=== PATIENT | female | born 1975 | race Caucasian/White ===

== ENCOUNTER 2018-09-15 12:36 | Inpatient (IN) | payer OTHER ==
[~2018-09-15] VITALS: Ht 157.5 cm; Wt 74.8 kg
[2018-09-15 12:50] VITALS: BP_SYST 148
--- NOTE | 2018-09-15 13:05 | NUR ---
Patient to ER bed 02 to gown for evaluation. Side rails up.
--- NOTE | 2018-09-15 13:05 | NUR ---
Pt AAOx4 ambulated into ED c/o LLQ pain and accompanying vomiting x 2 days. Pt took laxative yesterday with no relief. Skin pink dry and warm, breathing even and unlabored. No other injuries/complaints per pt/noted. Will continue to monitor.
--- NOTE | 2018-09-15 13:44 | NUR ---
ER Dr. Kebede at bedside examining patient.
[2018-09-15] MEDS ORDERED: NACL 0.9% 1,000 ML IV ONE (13:45)
[2018-09-15 13:54] LABS: BASOPHILS % (AUTO) 0.2 % (0.0-2.0); EOSINOPHILS % (AUTO) 0.2 % (0.0-4.0); HEMATOCRIT 36.3 % (36-48); HEMOGLOBIN 11.6 g/dL (12.0-16.0); LYMPHOCYTES # (AUTO) 1.1 K/uL (1.0-5.5); LYMPHOCYTES % (AUTO) 7.3 % (20.5-51.5); MEAN CORPUSCULAR HEMOGLOBIN 24 pg (27-31); MEAN CORPUSCULAR HGB CONC 32 % (32-36); MEAN CORPUSCULAR VOLUME 76 fL (79.0-98.0); MONOCYTES # (AUTO) 1.2 K/uL (0.0-1.0); MONOCYTES % (AUTO) 8.4 % (1.7-9.3); NEUTROPHILS # (AUTO) 12.2 K/uL (1.8-7.7); PLATELET COUNT (AUTO) 318 K/uL (130-430); RED CELL DISTRIBUTION WIDTH 22.3 % (9.0-15.0); WHITE BLOOD COUNT (AUTO) 14.5 K/uL (4.8-10.8)
--- NOTE | 2018-09-15 13:54 | NUR ---
Pt reports 10/[address] Kebede notified. ORders to be received.
[2018-09-15] MEDS ORDERED: fentaNYL CITRATE/PF 100 MCG/2 ML AMP IVP ONE (14:00)
[2018-09-15] MEDS ORDERED: ONDANSETRON HCL 4 MG/2 ML VIAL IVP ONE (14:00)
[2018-09-15] MEDS ORDERED: KETOROLAC TROMETHAMINE 30 MG VIAL IVP ONE (14:00)
[2018-09-15 14:04] LABS: CALCIUM 8.9 mg/dL (8.4-11.0); CREATININE 0.8 mg/dL (0.55-1.30); POTASSIUM 3.9 mmol/L (3.5-5.1)
[2018-09-15 14:10] LABS: NEUTROPHILS % (AUTO) 83.9 % (40.0-70.0)
[2018-09-15 14:17] LABS: ALBUMIN 3.5 g/dL (3.4-4.8); TOTAL BILIRUBIN 0.6 mg/dL (0.0-1.0)
--- NOTE | 2018-09-15 14:25 | NUR ---
Patient reports that she takes no medications at home.
--- NOTE | 2018-09-15 14:37 | NUR ---
Pt reports she is full code
[2018-09-15 15:37] LABS: BILIRUBIN,URINE NEGATIVE (NEGATIVE); BLOOD, URINE NEGATIVE (NEGATIVE); CLARITY/URINE HAZY (CLEAR); COLOR,URINE YELLOW (YELLOW); GLUCOSE,URINE NEGATIVE (NEGATIVE); KETONES,URINE NEGATIVE (NEGATIVE); LEUKOCYTE ESTERASE ,URINE 2+ (NEGATIVE); NITRITE, URINE NEGATIVE (NEGATIVE); PH,URINE 6.5 (5.0-8.0); PROTEIN URINE NEGATIVE (NEGATIVE); UROBILINOGEN,URINE 0.2 (0.2-1.0)
[2018-09-15] MEDS ORDERED: metroNIDAZOLE 500 mg/NS 100 ML IV ONE ×2 (16:15→18:45)
[2018-09-15] MEDS ORDERED: cefTRIAXone 1 GM in D5W 50 ML IV ONE (16:15)
--- NOTE | 2018-09-15 16:17 | NUR ---
Lab at bedside for blood draw
[2018-09-15 16:18] LABS: BACTERIA,URINE FEW /HPF (None Seen); RBC,URINE 0-3 /HPF (0-3); WBC,URINE 20-50 /HPF (0-3)
[2018-09-15] MEDS ORDERED: cefTRIAXone 1 GM VIAL ONE (16:18)
[2018-09-15 16:19] LABS: MUCUS,URINE 1+ /LPF (None Seen)
--- NOTE | 2018-09-15 16:26 | NUR ---
Rocephin administered. Pt tolerated well. No adverse reactions noted.
--- NOTE | 2018-09-15 16:32 | NUR ---
ADMISSION NOTE Received patient from ER via gurney. Patient admitted with diagnosis of . Patient is awake, alert, oriented X 4. Patient oriented to hospital room, call light, toileting, pain management and safety-teach back done. Patient informed that Justina will be her nurse and that their room number is 134B. Personal belongings checked and Belongings List documented. Call light within reach.
--- NOTE | 2018-09-15 16:44 | NUR ---
Patient will be admitted to care of [facility]. Admitted to Medsurg unit. Will go to room 134B. Belongings list completed. Summary report printed. Report will be given at bedside.
--- NOTE | 2018-09-15 16:44 | NUR ---
CONSULTATION CALLED REASON FOR CONSULTATION:DIVERTICULITIS WAS CONSULT CALLED?Y PERSON WHO WAS NOTIFIED:JESSE CONSULTING PHYSICIAN:RIGOBERTO FLORES STRIPER SPECIALTY:SURGEON STRIPER PHONE NUMBER:[phone] ORDERING PHYSICIAN:YOSEPH QUISPE
[2018-09-15 16:49] VITALS: BP_SYST 143
--- NOTE | 2018-09-15 17:30 | NUR ---
Patient Ambulated to Restroom with steady gait, family at bedside, will continue to monitor
--- NOTE | 2018-09-15 18:15 | NUR ---
Second Lactic Acid Draw at this time, patient resting in bed, family at bedside, denies pain at this time, IV site remains patent, will continue to monitor
[2018-09-15] MEDS: cefTRIAXone 1 GM IVPB PREMIX 50 ML IV SCH (18:45)
[2018-09-15] MEDS ORDERED: METOCLOPRAMIDE HCL 10 MG/2 ML VIAL IVP PRN (18:45)
[2018-09-15] MEDS ORDERED: MORPHINE 4 MG/ML INJ. SYRINGE IVP PRN (18:45)
[2018-09-15] MEDS ORDERED: MORPHINE 2 MG/ML INJ. SYRINGE IVP PRN (18:45)
[2018-09-15] MEDS: D5NS 1,000 ML IV SCH (18:56)
--- NOTE | 2018-09-15 19:08 | NUR ---
OPENING NOTES Bedside report received from dayshift nurse. Patient received AOx4, lying in bed, HOB raised, complaining of 6/10 abdominal pain. Patient informed that Morphine will be administered per PRN orders. Breathing is even and unlabored. IVF infusing well, IV site shows no signs of infiltration or infection. Call light with patient, instructed to call for any assistance, patient verbalized understanding. Patient refused bed alarm to be turned on despite being educated on its purpose or benefits, will continue to encourage throughout shift. Patient educated on assessing for orthostatic hypotension upon getting up, to sit up at edge of bed and assess for dizziness or weakness, if so call using call light for assistance, patient verbalized understanding. Bed is locked and at lowest position. Will continue to monitor and reassess.
[2018-09-15] MEDS: ONDANSETRON HCL 4 MG/2 ML VIAL IVP PRN (19:22)
--- NOTE | 2018-09-15 19:32 | NUR ---
Closing Note patient resting in bed, family at bedside, pain and nausea medication administered, IV site remains patent, IV fluids infusing at this time, no other needs at this time, report was given to Jacoby MICHELE, safety precautions remain in place, bedside table and call light left within reach, endorsed to shift engineer nurse
[2018-09-15 20:00] VITALS: BP_SYST 131
[2018-09-15] MEDS: metroNIDAZOLE 500 mg/NS 100 ML IV SCH (21:12)
--- NOTE | 2018-09-15 21:12 | NUR ---
IV ANTIBIOTIC HUNG Patient in bed, watching TV, no signs of discomfort noted, denies pain at this time. IV antibiotic hung at this time. IVF infusing well, IV site is patent, no signs of infiltration or infection noted. Call light with patient. Will continue to monitor.
[2018-09-15 23:14] VITALS: BP_SYST 103
--- NOTE | 2018-09-15 23:36 | NUR ---
TRANSFER OF CARE Bedside report given to RNShaye. Patient in bed sleeping, no signs of discomfort noted. Breathing even and unlabored. IVF infusing well. HOB raised. All needs met. Fall and safety precautions maintained throughout.
--- NOTE | 2018-09-15 23:37 | NUR ---
ASSUMPTION OF CARE BEDSIDE REPORT GIVEN BY LENY TURCIOS. PATIENT IS SLEEPING, STABLE, NO SIGNS OF RESPIRATORY DISTRESS. CALL LIGHT IS WITHIN REACH. BED IS LOCKED, ALARMED, AND AT THE LOWEST LEVEL. FALL AND SAFETY PRECAUTIONS WILL BE IN PLACE THROUGHOUT THE SHIFT.
--- NOTE | 2018-09-16 01:35 | NUR ---
NOTE PATIENT IS SLEEPING, STABLE, NO SIGNS OF RESPIRATORY DISTRESS. CALL LIGHT IS WITHIN REACH. BED IS LOCKED, ALARMED, AND AT THE LOWEST LEVEL.
[2018-09-16] MEDS: D5NS 1,000 ML IV SCH ×3 (02:32→14:04)
--- NOTE | 2018-09-16 03:31 | NUR ---
NOTE PATIENT IS SLEEPING, STABLE, NO SIGNS OF RESPIRATORY DISTRESS. CALL LIGHT IS WITHIN REACH. BED IS LOCKED, ALARMED, AND AT THE LOWEST LEVEL.
[2018-09-16] MEDS: metroNIDAZOLE 500 mg/NS 100 ML IV SCH ×3 (05:00→21:05)
--- NOTE | 2018-09-16 05:24 | NUR ---
NOTE PATIENT IS RESTING IN BED, STABLE, NO SIGNS OF RESPIRATORY DISTRESS. PATIENT DENIES ANY PAIN OR NAUSEA. CALL LIGHT IS WITHIN REACH. BED IS LOCKED, ALARMED, AND AT THE LOWEST LEVEL.
--- NOTE | 2018-09-16 06:38 | NUR ---
CLOSING NOTE PATIENT IS RESTING IN BED, STABLE, NO SIGNS OF RESPIRATORY DISTRESS. PATIENT DENIED ANY PAIN OR NAUSEA THROUGHOUT THE SHIFT. CALL LIGHT IS WITHIN REACH. BED IS LOCKED, ALARMED, AND AT THE LOWEST LEVEL. ALL NEEDS MET. PATIENT HAS BEEN KEPT NPO THROUGHOUT THE SHIFT. WILL CONTINUE TO MONITOR UNTIL SHIFT REPORT IS GIVEN AT BEDSIDE TO AM NURSE.
--- NOTE | 2018-09-16 07:30 | NUR ---
Opening Note patient resting in bed, awake and alert, no complaints of pain at this time, breathing unlabored on room air, IV fluids infusing at this time, site patent, educated her on use of call light for assistance, verbalized understanding, safety precautions in place, bedside table and call light left within reach, will continue to monitor
[2018-09-16 07:51] VITALS: BP_SYST 102
[2018-09-16 08:18] VITALS: BP_SYST 102
--- NOTE | 2018-09-16 08:25 | NUR ---
ASSUMPTION OF CARE BEDSIDE REPORT GIVEN BY LENY TURCIOS. PATIENT IS SLEEPING, STABLE, NO SIGNS OF RESPIRATORY DISTRESS. CALL LIGHT IS WITHIN REACH. BED IS LOCKED, ALARMED, AND AT THE LOWEST LEVEL. FALL AND SAFETY PRECAUTIONS WILL BE IN PLACE THROUGHOUT THE SHIFT. Addendum: 09/16/18 at 0861 by Shaye Nolasco RN NOTE INTENDED FOR DIFFERENT TIME
--- NOTE | 2018-09-16 08:30 | NUR ---
Dr. Simon Rounds on patient, awaiting Dr. Driver's surgical consult
--- NOTE | 2018-09-16 08:45 | NUR ---
Patient Resting in Bed at this time, no complaints of pain except when pressure on left lower quadrant, educated her regarding pain management and plan of care, verbalized understanding, no other needs at this time, safety precautions in place, bedside table and call light left within reach, will continue to monitor
[2018-09-16] MEDS: FAMOTIDINE 20 MG TABLET PO SCH ×2 (09:20→20:16)
--- NOTE | 2018-09-16 10:18 | NUR ---
Nutrition Update Gaurav Scale 18 noted. Pt admitted for diverticulitis. Diet: NPO BMI: 30.2 kg/m2 RD to follow per nutrition care standards.
--- NOTE | 2018-09-16 10:40 | NUR ---
Patient in Bed at this time, no complaints of pain, family at bedside, IV fluids infusing at this time, no complaints of chills, educated patient on use of call light for assistance, verbalized understanding, safety precautions in place, bedside table and call light left within reach, will continue to monitor
[2018-09-16 11:06] VITALS: BP_SYST 106
--- NOTE | 2018-09-16 12:50 | NUR ---
Patient Resting at this time, eyes closed, breathing unlabored on room air, IV fluids still infusing, safety precautions in place, bedside table and call light left within reach, will continue to monitor
--- NOTE | 2018-09-16 14:07 | NUR ---
Antibiotics hung at this time, site remains patent, no complaints of pain or nausea at this time, breathing remains unlabored on room air, educated patient on use of call light for assistance, verbalized understanding, safety precautions in place, bedside table and call light left within reach, will continue to monitor
--- NOTE | 2018-09-16 16:03 | NUR ---
Patient Taking Shower at this time, ambulated with steady gait, no complaints of pain at this time, breathing remains unlabored on room air, safety precautions in place, will continue to monitor
--- NOTE | 2018-09-16 16:24 | NUR ---
Dr. Driver Rounded at this time, stated to keep patient NPO, no plans for surgery at this time, will check MD orders
[2018-09-16 16:57] VITALS: BP_SYST 106
[2018-09-16 17:10] VITALS: BP_SYST 105
[2018-09-16] MEDS: cefTRIAXone 1 GM IVPB PREMIX 50 ML IV SCH (17:47)
--- NOTE | 2018-09-16 17:52 | NUR ---
Antibiotics Hung at this time, educated patient regarding med, verbalized understanding, IV site remains patent, family at bedside, educated patient on use of call light for assistance, verbalized understanding, safety precautions in place, bedside table and call light left within reach, will continue to monitor
--- NOTE | 2018-09-16 18:53 | NUR ---
Closing Note patient resting in bed, eyes closed, breathing unlabored on room air, HOB elevated, IV fluids infusing, site remains patent, safety precautions in place, bedside table and call light left within reach, will endorse to production planner scheduler nurse
--- NOTE | 2018-09-16 19:00 | NUR ---
OPENING NOTES Bedside report received from day shift nurse. Patient received AOx4, lying in bed, watching TV. Patient denies any pain. No s/s of acute distress. Breathing is even and unlabored. IVF infusing well. IV site shows no signs of infection or infiltration. Call light with patient. Bed alarm is off per patient's request, will continue to encourage throughout shift. Bed is locked and at lowest position. Will continue to monitor.
[2018-09-16 20:00] VITALS: BP_SYST 111
--- NOTE | 2018-09-16 21:00 | NUR ---
ROUNDS Patient in bed resting at this time. NO signs of discomfort noted. Patient denies any pain or discomfort. Chest rise and fall even bilaterally. Call light with patient. IVF infusing well. Will continue to monitor.
--- NOTE | 2018-09-16 23:00 | NUR ---
ROUNDS Patient in bed sleeping at this time. No signs of discomfort noted. Chest rise and fall even bilaterally. IVF infusing well. Call light with patient. Will continue to monitor.
[2018-09-17] MEDS: D5NS 1,000 ML IV SCH ×3 (02:32→13:47)
--- NOTE | 2018-09-17 04:30 | NUR ---
ROUNDS Patient in bed sleeping at this time. IVF infusing well. No s/s of acute distress noted. Chest rise and fall even bilaterally. Call light with patient. Will continue to monitor.
[2018-09-17] MEDS: metroNIDAZOLE 500 mg/NS 100 ML IV SCH (05:29)
[2018-09-17 06:20] LABS: EOSINOPHILS # (AUTO) 0.1 K/uL (0.0-0.4); EOSINOPHILS % (AUTO) 0.6 % (0.0-4.0); HEMATOCRIT 27.8 % (36-48); HEMOGLOBIN 8.7 g/dL (12.0-16.0); LYMPHOCYTES # (AUTO) 0.7 K/uL (1.0-5.5); LYMPHOCYTES % (AUTO) 6.5 % (20.5-51.5); MEAN CORPUSCULAR HEMOGLOBIN 25 pg (27-31); MEAN CORPUSCULAR HGB CONC 31 % (32-36); MEAN CORPUSCULAR VOLUME 79 fL (79.0-98.0); MONOCYTES # (AUTO) 0.4 K/uL (0.0-1.0); MONOCYTES % (AUTO) 3.8 % (1.7-9.3); NEUTROPHILS # (AUTO) 9.5 K/uL (1.8-7.7); NEUTROPHILS % (AUTO) 89.1 % (40.0-70.0); PLATELET COUNT (AUTO) 236 K/uL (130-430); RED BLOOD CELL COUNT(AUTO) 3.53 MIL/uL (4.2-6.2)
--- NOTE | 2018-09-17 06:28 | NUR ---
CLOSING NOTES Patient in bed sleeping at this time. No s/s of acute distress noted. Patient did not complain of pain throughout shift. Breathing is even and unlabored. HOB raised. IVF infusing well, IV site shows no signs of infection or infiltration. All of patient's needs met throughout shift. Fall and safety precautions maintained throughout shift. Will continue to monitor until patient care is endorsed to oncoming dayshift nurse.
[2018-09-17 06:51] LABS: ALBUMIN 2.1 g/dL (3.4-4.8); CALCIUM 7.7 mg/dL (8.4-11.0); CREATININE 0.63 mg/dL (0.55-1.30); TOTAL BILIRUBIN 0.3 mg/dL (0.0-1.0)
[2018-09-17 07:11] LABS: WHITE BLOOD COUNT (AUTO) 10.7 K/uL (4.8-10.8)
--- NOTE | 2018-09-17 07:20 | NUR ---
Opening Note patient resting in bed, awake and alert, no complaints of pain at this time, breathing unlabored on room air, IV fluids infusing at this time, site patent, safety precautions in place, bedside table and call light within reach will continue to monitor
--- NOTE | 2018-09-17 07:30 | NUR ---
Incentive Spirometer Teaching educated patient on use of IS, verbalized understanding, reached up to 1500 mL, tolerated well, educated her on frequency of use, verbalized understanding, left IS within reach, will continue to monitor
[2018-09-17 07:32] VITALS: BP_SYST 110
--- NOTE | 2018-09-17 07:46 | NUR ---
Spoke with Dr. Simon at Station made rounds on patient, placed on clear liquid diet, stated OK to advance diet as tolerated. MD stated will change antibiotics to PO and possible DC tomorrow, will update patient on plan of care
[2018-09-17] MEDS ORDERED: POTASSIUM CHLORIDE 20 MEQ TAB.PRT.SR PO ONE (08:00)
[2018-09-17] MEDS: FAMOTIDINE 20 MG TABLET PO SCH ×2 (08:21→20:30)
--- NOTE | 2018-09-17 08:29 | NUR ---
Medication Administration educated patient regarding meds, verbalized understanding, tolerated well by mouth, she is sitting on chair at bedside, no other needs at this time, safety precautions in place, bedside table and call light within reach will continue to monitor
[2018-09-17] MEDS: LEVOFLOXACIN 500 MG TABLET PO SCH (10:48)
--- NOTE | 2018-09-17 10:53 | NUR ---
Antibiotics administered PO at this time, educated her regarding med, verbalized understanding, tolerated well, no complaints of pain at this time, IV fluids infusing, educated patient on use of call light for assistance, verbalized understanding, call light and bedside table left within reach, will continue to monitor patient
[2018-09-17 12:08] VITALS: BP_SYST 118
--- NOTE | 2018-09-17 12:50 | NUR ---
Patient Sitting on Chair at Bedside at this time, attempting to eat clear liquid diet at this time, complaining of nausea, educated her regarding nausea mediation, will administer per protocol
[2018-09-17] MEDS: ONDANSETRON HCL 4 MG/2 ML VIAL IVP PRN ×2 (13:01→22:53)
[2018-09-17] MEDS: metroNIDAZOLE 500 MG TABLET PO SCH ×2 (13:45→22:48)
--- NOTE | 2018-09-17 14:05 | NUR ---
Patient Assisted to Shower ambulated with steady gait, no complaints of pain at this time, breathing unlabored on room air, educated her sales operations associate light for assistance, verbalized understanding, will continue to monitor
--- NOTE | 2018-09-17 14:18 | NUR ---
Case mgt:Met w/pt at bedside--she resides with her mom and her two teenage children. Independent with ADLs--f/u as needed for dc planning--gave my business card to pt--Per face sheet, pt has [facility] and their cm will f/u for any dc planning needs. RONNY MICHELE
--- NOTE | 2018-09-17 16:20 | NUR ---
Patient Sitting up in Bed awake and alert, denies pain, no nausea or vomiting at this time, breathing unlabored on room air, IV fluids infusing, site patent, educated patient on use of call light for assistance, verbalized understanding, call light and bedside table left within reach, will continue to monitor
[2018-09-17 16:52] VITALS: BP_SYST 136
--- NOTE | 2018-09-17 18:10 | NUR ---
Patient Complaining of Nausea/Vomited at this time. Drank half of beef broth but is feeling nauseous, educated her to only eat as tolerated, verbalized understanding, later stated she threw up the broth. Patient crying, provided therapeutic communication, provided with ice chips, educated her to stop PO intake at this time to re-evaluate tolerance, verbalized understanding, will be back to check on patient
--- NOTE | 2018-09-17 18:50 | NUR ---
Re-assessment of patient patient sitting on bed, legs dangling, stated she is feeling better and headache and nausea went away, stated she is feeling discouraged, provided therapeutic communication, educated her to not intake PO medications if she is feeling nauseous and medications available as needed, verbalized understanding, no other needs at this time, safety precautions in place, will continue to monitor
--- NOTE | 2018-09-17 19:10 | NUR ---
OPENING NOTES Late entry due to patient care. Bedside report received from day shift nurse. Patient received AOx4, lying in bed, chatting with two visitors. Patient shows no s/s of acute distress, denies feeling nauseated at this time, denies pain. Breathing is even and unlabored. IVF infusing well, IV site shows no signs of infiltration or infection. Call light with patient, instructed to call for any assistance, patient verbalized understanding. Bed alarm is off per patient's request. Bed is locked and at lowest position. Will continue to monitor.
--- NOTE | 2018-09-17 19:20 | NUR ---
Closing Note patient resting in bed, family at bedside, stated she feels better after she threw up, denies nausea at this time, report given to shift supervisor nurse at bedside, safety precautions remain in place, endorsed to shift supervisor nurse
[2018-09-17 20:00] VITALS: BP_SYST 124
--- NOTE | 2018-09-17 21:00 | NUR ---
ROUNDS Patient in bed watching TV at this time. No s/s of acute distress. Breathing even and unlabored. Call light with patient. Will continue to monitor.
[2018-09-17] MEDS: ACETAMINOPHEN 325 MG TABLET PO PRN (22:53)
--- NOTE | 2018-09-17 23:00 | NUR ---
ROUNDS Patient in bed resting at this time. No signs of discomfort noted. Chest rise and fall even bilaterally. Call light with patient. IVF infusing well. Will continue to monitor.
[2018-09-18 01:00] VITALS: BP_SYST 107
--- NOTE | 2018-09-18 01:00 | NUR ---
ROUNDS Patient in bed sleeping at this time. No s/s of acute distress noted. Call light with patient. Will continue to monitor.
--- NOTE | 2018-09-18 03:00 | NUR ---
ROUNDS Patient went to go void in bathroom and walked back to bed. Steady gait. No signs of discomfort, patient denies any pain. Call light with patient. IVF infusing well. Will continue to monitor.
--- NOTE | 2018-09-18 05:00 | NUR ---
ROUNDS/ANTIBIOTIC Patient in bed, awake for med pass. Flagyl PO administered at this time. NO signs of discomfort noted. Patient denies any pain. Chest rise and fall even bilaterally. IVF infusing well. Call light with patient. Will continue to monitor.
[2018-09-18] MEDS: metroNIDAZOLE 500 MG TABLET PO SCH (05:15)
[2018-09-18] MEDS: ACETAMINOPHEN 325 MG TABLET PO PRN (05:19)
[2018-09-18] MEDS: D5NS 1,000 ML IV SCH (05:22)
--- NOTE | 2018-09-18 06:33 | NUR ---
CLOSING NOTES Patient in bed resting, appears to be asleep, eyes closed. No s/s of acute distress. Breathing even and unlabored. IVF infusing well. All needs met throughout shift. Fall and safety precautions maintained throughout shift. Will continue to monitor until patient care is endorsed to oncoming day shift nurse.
[2018-09-18 06:48] LABS: BASOPHILS # (AUTO) 0.1 K/uL (0.0-0.2); BASOPHILS % (AUTO) 0.9 % (0.0-2.0); EOSINOPHILS # (AUTO) 0.1 K/uL (0.0-0.4); EOSINOPHILS % (AUTO) 1.8 % (0.0-4.0); HEMATOCRIT 29.3 % (36-48); HEMOGLOBIN 9.1 g/dL (12.0-16.0); LYMPHOCYTES # (AUTO) 0.8 K/uL (1.0-5.5); LYMPHOCYTES % (AUTO) 14.3 % (20.5-51.5); MEAN CORPUSCULAR HEMOGLOBIN 25 pg (27-31); MEAN CORPUSCULAR HGB CONC 31 % (32-36); MEAN CORPUSCULAR VOLUME 79 fL (79.0-98.0); MONOCYTES # (AUTO) 0.3 K/uL (0.0-1.0); MONOCYTES % (AUTO) 5.7 % (1.7-9.3); NEUTROPHILS # (AUTO) 4.4 K/uL (1.8-7.7); NEUTROPHILS % (AUTO) 77.3 % (40.0-70.0); PLATELET COUNT (AUTO) 271 K/uL (130-430); RED CELL DISTRIBUTION WIDTH 22.3 % (9.0-15.0); WHITE BLOOD COUNT (AUTO) 5.7 K/uL (4.8-10.8)
[2018-09-18 07:03] LABS: ALBUMIN 2.2 g/dL (3.4-4.8); CALCIUM 8.3 mg/dL (8.4-11.0); CREATININE 0.66 mg/dL (0.55-1.30); POTASSIUM 3.3 mmol/L (3.5-5.1); TOTAL BILIRUBIN 0.2 mg/dL (0.0-1.0)
[2018-09-18 08:00] VITALS: BP_SYST 130
[2018-09-18] MEDS ORDERED: POTASSIUM CHLORIDE 20 MEQ TAB.PRT.SR PO ONE (08:00)
--- NOTE | 2018-09-18 08:00 | NUR ---
PATIENT IS RESTING, ABLE TO AMBULATE, A/OX4. IV ON THE RIGHT FA, #22. POC IS EXPLAINED. CALL LIGHT IN PLACE, BED LOCKED AT THE LOWEST POSITION. WILL CONTINUE TO MONITOR.
[2018-09-18] MEDS: FAMOTIDINE 20 MG TABLET PO SCH (09:20)
[2018-09-18] MEDS: LEVOFLOXACIN 500 MG TABLET PO SCH (09:20)
[2018-09-18 09:33] VITALS: BP_SYST 131
--- NOTE | 2018-09-18 11:20 | NUR ---
D/C Patient Patient given medication reconciliation form and D/C instructions. Exit Care provided. Patient verbalized understanding. MD discussed with patient the results and treatment provided. Ambulatory with steady gait for discharge to home. Patient in stable condition, ID band removed. IV catheter removed, intact and dressing applied, no active bleeding. Rx of LEVAQUIN, FLAGYL, PEPCID, MULTIVITAMIN given. Patient educated on pain management. All belongings sent with patient.
[2018-09-18 12:57] VITALS: BP_SYST 129
== END 2018-09-18 11:18 | disposition home or self-care (01) | DRG 392 ==
LOC: SED 12:36 → SMU 16:15
PROVIDERS: ADMIT Internal Medicine Hospice and Palliative Medicine; ATTEND Internal Medicine Hospice and Palliative Medicine
DX: K57.32 Diverticulitis of large intestine without perforation or abscess without bleeding (principal); D64.9 Anemia, unspecified; K44.9 Diaphragmatic hernia without obstruction or gangrene
CPT/HCPCS: 36415; 71045; 80053; 81000-TC; 83605; 83690-TC; 85025; 87040-TC; 87086; 94010; 96361; 96365; 96367; 96375; 99285; J0696; J1885; J2270; J2405; J3010; J3490; J7030; J7042